=== PATIENT | female | born 1990 | race Caucasian/White ===

== ENCOUNTER 2022-06-16 11:50 | Outpatient (CLI) | payer OTHER ==
[~2022-06-16 11:50] MED LIST: FOLIC ACID0.4 MG
== END 2022-06-16 14:00 | disposition home or self-care (01) ==
LOC: PRENATAL 11:50
PROVIDERS: ATTEND Obstetrics & Gynecology Maternal & Fetal Medicine
DX: O36.80X0 Pregnancy with inconclusive fetal viability, not applicable or unspecified (principal); O03.4 Incomplete spontaneous abortion without complication; O26.859 Spotting complicating pregnancy, unspecified trimester; Z3A.09 9 weeks gestation of pregnancy

== ENCOUNTER 2023-02-17 14:42 | Outpatient (CLI) | payer OTHER | END 2023-02-17 17:00 | disposition home or self-care (01) | LOC: PRENATAL 14:42 | PROVIDERS: ATTEND Obstetrics & Gynecology Maternal & Fetal Medicine | DX: O35.9XX0 Maternal care for (suspected) fetal abnormality and damage, unspecified, not applicable or unspecified (principal); O35.3XX0 Maternal care for (suspected) damage to fetus from viral disease in mother, not applicable or unspecified; O09.529 Supervision of elderly multigravida, unspecified trimester; O36.8199 Decreased fetal movements, unspecified trimester, other fetus; O36.5990 Maternal care for other known or suspected poor fetal growth, unspecified trimester, not applicable or unspecified; Z3A.29 29 weeks gestation of pregnancy ==

== ENCOUNTER 2024-09-07 02:40 | Inpatient (IN) | payer OTHER ==
[~2024-09-07] VITALS: Ht 162.6 cm; Wt 87.1 kg
[2024-09-07] VITALS (7 sets, daily range): BP systolic 112–137; BP diastolic 66–83
[2024-09-07] MEDS ORDERED: RINGERS SOLUTION,LACTATED 1,000 ML IV SCH (02:45)
[2024-09-07 03:41] LABS: URINE APPEARANCE Clear; URINE BILIRRUBIN Negative (NEGATIVE); URINE BLOOD Small; URINE COLOR Yellow; URINE GLUCOSE Negative (NEGATIVE); URINE KETONE 15 (NEGATIVE); URINE LEUKOCYTE Negative; URINE NITRATE Negative; URINE PROTEIN 30 (NEGATIVE)
[2024-09-07 03:44] LABS: URINE EPITHELIAL CELLS 21.5 uL (0.0-38.8); URINE RBC 57.4 uL (0.0-20.8); URINE WBC 13.2 uL (0.0-23.2)
[2024-09-07 03:52] LABS: HEMATOCRIT 34.1 % (36.0-45.00); HEMOGLOBIN 11.1 g/dL (12.0-15.00); MEAN CELL VOLUME 70.4 fL (80.00-100.00); MEAN CORPUSCULAR HGB CONC 32.7 g/dl (32.0-36.0); PLATELET COUNT 228 K/uL (150-450); RED BLOOD COUNT 4.84 M/uL (4.00-6.00); RED CELL DISTRIBUTION WIDTH 14.8 % (11.5-14.5)
[2024-09-07 03:53] LABS: URINE CAST 1.03 uL (0.0-1.40)
[2024-09-07 03:56] LABS: ALBUMIN 2.2 gm/dL (3.4-5.0); BILIRUBIN TOTAL 0.35 mg/dL (0.3-1.2); CALCIUM 8.4 mg/dL (8.5-10.1); CREATININE SERUM 0.6 mg/dL (0.55-1.02); GFR 113.11; GLOBULINA 3.9 G/DL (2.4-3.5); POTASSIUM 4.53 mEq/L (3.5-5.1); TOTAL PROTEIN 6.1 gm/dL (6.4-8.2)
[2024-09-07 03:58] LABS: INR < 0.93; PARTIAL THROMBOPLASTIN TIME 29.8 SECONDS (22.0-34.0)
[2024-09-07] MEDS ORDERED: OXYTOCIN 20 UNITS/1000ML RL PIGGYBAG IV ONE (04:02)
[2024-09-07] MEDS ORDERED: CHLORHEXIDINE GLUCONATE 120 ML BOTTLE TP SCH (05:00)
[2024-09-07] MEDS ORDERED: OXYTOCIN 1,000 ML IV SCH (05:00)
[2024-09-07] MEDS ORDERED: IBUprofen 400 MG TABLET PO PRN (05:00)
[2024-09-07] MEDS ORDERED: ACETAMINOPHEN 325 MG TABLET PO PRN (05:15)
[2024-09-07] MEDS ORDERED: FERROUS SULFATE 325 MG TABLET.EC PO SCH (09:00)
[2024-09-07] MEDS ORDERED: PNV,CALCIUM 72/IRON/FOLIC ACID 1 TAB TABLET PO SCH (09:00)
[2024-09-07 18:49] LABS: HEMATOCRIT 32.8 % (36.0-45.00); HEMOGLOBIN 10.4 g/dL (12.0-15.00); MEAN CORPUSCULAR HEMOGLOBIN 22.9 pg (27.00-32.0); MEAN CORPUSCULAR HGB CONC 31.7 g/dl (32.0-36.0); PLATELET COUNT 203 K/uL (150-450); RED BLOOD COUNT 4.55 M/uL (4.00-6.00); RED CELL DISTRIBUTION WIDTH 14.2 % (11.5-14.5)
[2024-09-08 00:16] VITALS: BP 120/62
[2024-09-08 08:24] VITALS: BP 113/76
[2024-09-08 16:25] VITALS: BP 116/66; O2SAT 98
[2024-09-08 23:51] VITALS: BP 120/83
== END 2024-09-09 17:52 | disposition home or self-care (01) | DRG 807 ==
LOC: OB/GYN 02:40 → LDR 02:40 → OB/GYN 04:59
PROVIDERS: Obstetrics & Gynecology; ADMIT Specialist; ATTEND Specialist
PROC: 10E0XZZ Delivery of Products of Conception, External Approach (ICD-10-PCS; principal; 2024-09-07)
PROC: 4A1HXCZ Monitoring of Products of Conception, Cardiac Rate, External Approach (ICD-10-PCS; 2024-09-07)
DX: O80 Encounter for full-term uncomplicated delivery (principal); Z37.0 Single live birth; Z3A.37 37 weeks gestation of pregnancy; Z20.822 Contact with and (suspected) exposure to COVID-19